=== PATIENT | female | born 1940 | race Caucasian/White ===

== ENCOUNTER → 2016-04-22 | Outpatient (CLI) | payer MEDICARE, OTHER ==
[~2016-04-22] MED LIST: ASPIRIN325 MG PO; CATAPRES 0.1MG0.1 MG PO; KLONOPIN TAB 00.5 MG PO; NITROGLYCERIN0.4 MG SL; NORCO 5-325 TA1 EACH PO; RAMIPRIL5 MG PO
[2016-04-22 10:07] LABS: BUN/CREATININE RATIO 18 (0-10)
== END ==
LOC: OPSV2 08:30
PROVIDERS: Orthopaedic Surgery
DX: Z01.812 Encounter for preprocedural laboratory examination (principal); Z01.810 Encounter for preprocedural cardiovascular examination; M65.331 Trigger finger, right middle finger; I10 Essential (primary) hypertension; E11.9 Type 2 diabetes mellitus without complications; Z88.8 Allergy status to other drugs, medicaments and biological substances
CPT/HCPCS: 36415; 80048; 93005

== ENCOUNTER → 2016-05-06 | Day surgery (SDC) | payer MEDICARE, OTHER ==
[~2016-05-06] VITALS: Ht 160 cm; Wt 59.9 kg
== END | disposition home or self-care (01) ==
LOC: OR 08:55
PROVIDERS: Orthopaedic Surgery
PROC: 0LN70ZZ Release Right Hand Tendon, Open Approach (ICD-10-PCS; principal; 2016-05-06 12:45)
DX: M65.331 Trigger finger, right middle finger (principal); I10 Essential (primary) hypertension; I25.10 Atherosclerotic heart disease of native coronary artery without angina pectoris; R73.03 Prediabetes; M19.90 Unspecified osteoarthritis, unspecified site; F41.9 Anxiety disorder, unspecified; Z86.73 Personal history of transient ischemic attack (TIA), and cerebral infarction without residual deficits; Z82.49 Family history of ischemic heart disease and other diseases of the circulatory system; Z82.3 Family history of stroke; Z82.5 Family history of asthma and other chronic lower respiratory diseases; Z88.8 Allergy status to other drugs, medicaments and biological substances; Z79.82 Long term (current) use of aspirin; Z79.899 Other long term (current) drug therapy; Z90.710 Acquired absence of both cervix and uterus; Z95.1 Presence of aortocoronary bypass graft; Z98.890 Other specified postprocedural states
CPT/HCPCS: 82962; J0690; J2250; J3010; J7120

== ENCOUNTER → 2020-04-04 | Outpatient (CLI) | payer MEDICARE, OTHER ==
[~2020-04-04] MED LIST changes: +ASPIR 8181 MG PO; +BENTYL 10MG CAP10 MG PO; +CARVEDILOL3.125 MG PO; +CLONIDINE1 EAC2 TD; +COD LIVER OIL1 EACH PO; +CYCLOBENZAPRINE10 MG PO; +DOCUSATE SODIU100 MG PO; +ELIQUIS 2.5 MG2.5 MG PO; +FISH OIL 1,0001 EACH PO; +FISH OIL EC 1,1 EACH PO; +HYDRALAZINE HCL10 MG PO; +HYDROCHLOROTH12.5 MG PO; +IBUPROFEN600 MG PO; +LOPRESSOR 25 MG25 MG PO; +NIFEDIPINE ER60 M1 PO; +NITROSTAT0.4 MG SL; +PROBIOTIC1 EAC3 PO; +RAMIPRIL10 MG PO; -RAMIPRIL5 MG PO; +TRAMADOL HCL50 MG PO; +VITAMIN D21250 MCG PO; +ZETIA 10 MG TAB10 MG PO
[2020-04-04 12:09] LABS: BUN/CREATININE RATIO 18 (0-10)
[2020-04-05 09:13] LABS: CREATININE, URINE 40.5 mg/dL (Not Estab.); MICROALB/CREAT RATIO <7 (0-29)
== END ==
LOC: LAB 11:07
PROVIDERS: Internal Medicine Nephrology
DX: N18.30 Chronic kidney disease, stage 3 unspecified (principal)
CPT/HCPCS: 36415; 80048; 82043; 82570

== ENCOUNTER → 2020-04-16 | Outpatient (CLI) | payer MEDICARE | LOC: CT 12:52 | DX: R10.31 Right lower quadrant pain (principal); K80.20 Calculus of gallbladder without cholecystitis without obstruction; K59.00 Constipation, unspecified | CPT/HCPCS: Q9967 ==

== ENCOUNTER → 2020-05-13 | Outpatient (CLI) | payer MEDICARE | LOC: LAB 15:13 | DX: I10 Essential (primary) hypertension (principal) | CPT/HCPCS: 36415 ==

== ENCOUNTER → 2020-05-15 | Outpatient (CLI) | payer MEDICARE ==
[2020-05-15 12:24] LABS: BUN/CREATININE RATIO 17 (0-10)
== END ==
LOC: LAB 10:11
PROVIDERS: Internal Medicine Nephrology
DX: I10 Essential (primary) hypertension (principal)
CPT/HCPCS: 36415; 80048

== ENCOUNTER 2020-05-29 12:26 | Inpatient (IN) | payer MEDICARE ==
[~2020-05-29] VITALS: Ht 162.6 cm; Wt 70.3 kg
[~2020-05-29 12:26] MED LIST changes: -DOCUSATE SODIU100 MG PO; -ELIQUIS 2.5 MG2.5 MG PO; -IBUPROFEN600 MG PO; -LOPRESSOR 25 MG25 MG PO; -NITROSTAT0.4 MG SL; -VITAMIN D21250 MCG PO
[2020-05-29 13:35] LABS: HEMOGLOBIN 13.5 gm/dl (12.3-15.3); RED BLOOD COUNT 4.29 M/UL (4.00-5.10); WHITE BLOOD COUNT 10.5 K/UL (4.5-11.0)
[2020-05-29 14:07] LABS: BUN/CREATININE RATIO 19 (0-10)
[2020-05-29] MEDS ORDERED: CLONIDINE1 EAC2 TD (16:04)
[2020-05-29] MEDS ORDERED: VITAMIN D21250 MCG PO (16:06)
[2020-05-29] MEDS ORDERED: NITROSTAT0.4 MG SL (16:06)
[2020-05-30 05:34] LABS: HEMOGLOBIN 13.5 gm/dl (12.3-15.3); RED BLOOD COUNT 4.34 M/UL (4.00-5.10); WHITE BLOOD COUNT 9.5 K/UL (4.5-11.0)
[2020-05-30 05:49] LABS: BUN/CREATININE RATIO 16 (0-10)
[2020-05-31 05:23] LABS: BUN/CREATININE RATIO 15 (0-10)
[2020-05-31 08:13] LABS: CORTISOL 15.9 ug/dL (.)
--- NOTE | 2020-06-01 16:51 | NUR ---
1540 REPORT FROM [facility]. AGREE WITH PREVIOUS NURSING ASSESSMENT. PATIENT TRASFERRED TO PCU AT 1610. SYED
[2020-06-01] MEDS ORDERED: IBUPROFEN600 MG PO (23:09)
[2020-06-04] MEDS ORDERED: LOPRESSOR 25 MG25 MG PO (09:48)
[2020-06-04] MEDS ORDERED: DOCUSATE SODIU100 MG PO (09:48)
[2020-06-04] MEDS ORDERED: ELIQUIS 2.5 MG2.5 MG PO (09:48)
[2020-06-06 19:12] LABS: METANEPHRINE, PL <10.0 pg/mL (0.0-88.0); NORMETANEPHRINE, PL 54.9 pg/mL (0.0-191.8)
[2020-06-08 14:10] LABS: DOPAMINE, URINE 83 ug/L (Undefined)
== END 2020-06-04 14:26 | disposition home health service (06) | DRG 64 ==
LOC: ER1 12:26 → CDU 15:32 → PROG CARE 15:32 → CCU 17:46 → PROG CARE 06-01 16:10
PROVIDERS: Emergency Medicine; Internal Medicine; Internal Medicine Nephrology; Physician Assistant Medical; ADMIT Internal Medicine
DX: I63.532 Cerebral infarction due to unspecified occlusion or stenosis of left posterior cerebral artery (principal); I61.9 Nontraumatic intracerebral hemorrhage, unspecified; I16.1 Hypertensive emergency; G81.91 Hemiplegia, unspecified affecting right dominant side; G93.2 Benign intracranial hypertension; I25.10 Atherosclerotic heart disease of native coronary artery without angina pectoris; E11.9 Type 2 diabetes mellitus without complications; E78.5 Hyperlipidemia, unspecified; I16.0 Hypertensive urgency; H35.029 Exudative retinopathy, unspecified eye; I70.1 Atherosclerosis of renal artery; Z20.822 Contact with and (suspected) exposure to COVID-19; Z95.1 Presence of aortocoronary bypass graft; Z86.73 Personal history of transient ischemic attack (TIA), and cerebral infarction without residual deficits; Z90.49 Acquired absence of other specified parts of digestive tract; Z98.49 Cataract extraction status, unspecified eye; Z88.6 Allergy status to analgesic agent; Z88.8 Allergy status to other drugs, medicaments and biological substances; Z82.49 Family history of ischemic heart disease and other diseases of the circulatory system
CPT/HCPCS: ECHO; 36415; 70450; 70544; 70551; 80048; 80053; 80061; 81001; 82088; 82384; 82533; 82550; 82553; 82962; 83735; 83835; 83874; 84244; 84484; 84585; 85025; 85027; 92610; 93005; 93306; 93880; 97116-GP-CQ; 97163; 97166; 97535; 99285; J1650; J2405; U0002